=== PATIENT | female | born 1970 | race Asian ===

== ENCOUNTER 2019-05-20 09:55 | Outpatient (CLI) | payer BC, SELFPAY ==
--- NOTE | 2019-05-20 09:58 | MM_ITS ---
WS: [id number] DIAGNOSTIC LEFT DIGITAL MAMMOGRAM WITH CAD LEFT breast ultrasound, limited HISTORY: Follow-up LEFT breast nodule. COMPARISON: 10/24/2018, 03/21/2018 and 06/04/2017 Technique: CC, MLO and ML views. Spot compression LEFT CC. Breast composition: The breasts are heterogeneously dense, which may obscure small masses. Biopsy cli p 3:00 axis of the LEFT breast. No architectural distortion or increasing mass or density. No calcifi cations. LEFT breast ultrasound, limited. Ultrasound directed to the 3:00 axis of the LEFT breast. There is a hypoechoic nodule with slightly l obulated margins measuring 6 x 4 x 7 mm. No significant increase in size although the shape appears s lightly more irregular. There is no increased vascularity. This nodule has been previously biopsied a nd was benign. Due to the slight change in the margins additional follow-up is necessary. Recommend ultrasound follow-up of the LEFT breast nodule at 3:00 in 6 months. The margins are slightl y more irregular on today's examination although there is no increase in size. MM/[id number] IMPRESSION: BI-RADS: 3-Probably Benign FOLLOW UP: 6 Month Follow-up
== END 2019-05-20 09:56 | disposition home or self-care (01) ==
LOC: RADSHAW 09:55
PROVIDERS: Family Provider Internal Medicine; PCP Internal Medicine; Visit Provider Internal Medicine
DX: N63.20 Unspecified lump in the left breast, unspecified quadrant (principal)
CPT/HCPCS: 76642; 77065

== ENCOUNTER 2019-12-24 11:08 | Outpatient (CLI) | payer BC, SELFPAY ==
--- NOTE | 2019-12-24 11:20 | MM_ITS ---
WS: [id number] BILATERAL DIGITAL DIAGNOSTIC MAMMOGRAM MAMMOGRAPHY WITH CAD CLINICAL INFORMATION: 6 MO F/U LT BREAST NODULE HISTORY: Six-month follow-up COMPARISON: May 20, 2019 and and TECHNIQUE: Bilateral CC, MLO, and ML views. FINDINGS: The breasts are composed of heterogeneous fibroglandular density, which can limit the detection of sm all underlying mass lesions. Biopsy marker left breast. Stable left breast calcifications. Ultrasound is pending. Right breast is unchanged in appearance. ULTRASOUND BREAST LEFT TECHNIQUE: Ultrasound left breast focused area of concern. CLINICAL INFORMATION: 6 MO F/U LT BREAST NODULE FINDINGS: Ultrasound left breast at the 3:00 position. Again seen is the hypoechoic nodule with slightly lobula kunal margins today measuring 4.9 x 3.4 x 4.8 mm not significantly changed in size compared to previous . This has been previously biopsied and reported to be benign. MM/[id number] IMPRESSION: BI-RADS: 3-Probably Benign FOLLOW UP: 6 Month Follow-up RECOMMEND 6 MONTH LEFT DIAGNOSTIC MAMMOGRAPHY AND ULTRASOUND TO DOCUMENT TWO-YE AR STABILITY
== END 2019-12-24 11:09 | disposition home or self-care (01) ==
LOC: RADSHAW 11:16
PROVIDERS: PCP Internal Medicine; Visit Provider Internal Medicine
DX: N63.20 Unspecified lump in the left breast, unspecified quadrant (principal); N63.25 Unspecified lump in the left breast, overlapping quadrants
CPT/HCPCS: 76642; 77066

== ENCOUNTER 2020-09-08 11:02 | Outpatient (CLI) | payer BC, SELFPAY ==
--- NOTE | 2020-09-08 11:05 | MM_ITS ---
WS: [id number] DIAGNOSTIC LEFT DIGITAL MAMMOGRAM WITH CAD LEFT breast ultrasound, limited HISTORY: INCONCLUSIVE MAMMOGRAM 2 year follow-up benign biopsy. COMPARISON: 12/24/2019, 05/20/2019, 10/24/2018 Technique: CC, MLO and ML views. Spot compression LEFT CC. Breast composition: The breasts are heterogeneously dense, which may obscure small masses. Dense fibr oglandular tissue again noted in the upper outer quadrant of the LEFT breast. No discrete mass identi fied. There is a biopsy clip with no increase in adjacent soft tissue. LEFT breast ultrasound, limited. Ultrasound is directed 3:00 of the LEFT breast. There is a soft tissue nodule which is hypoechoic a long the posterior chest wall measuring 4 x 3 x 4 mm. No increased vascularity. Long-term stability. MM/[id number] IMPRESSION: BI-RADS: 2-Benign FOLLOW UP: 1 Year Follow-up Patient should return to annual screening mammography
== END 2020-09-08 11:03 | disposition home or self-care (01) ==
LOC: RADSHAW 11:04
PROVIDERS: PCP Internal Medicine; Visit Provider Internal Medicine
DX: R92.2 Inconclusive mammogram (principal)
CPT/HCPCS: 76642; 77065

== ENCOUNTER 2022-03-06 07:57 | Outpatient (CLI) | payer BC, SELFPAY ==
--- NOTE | 2022-03-06 08:04 | MM_ITS ---
WS: [id number] BILATERAL SCREENING DIGITAL TOMOSYNTHESIS MAMMOGRAM WITH CAD HISTORY: SCREENING COMPARISON: 09/08/2020, 06/16/2019 Bilateral CC and MLO views with tomosynthesis and synthetic mammography submitted. Computer aided det ection analyzed. Breast composition: The breasts are heterogeneously dense, which may obscure small masses. No suspici ous masses, microcalcifications or architectural distortion. Biopsy clip in the lateral LEFT breast. No associated mass. MM/[place] [id number] IMPRESSION: BI-RADS: 2-Benign FOLLOW UP: 1 Year Follow-up
== END 2022-03-06 07:58 | disposition home or self-care (01) ==
LOC: RAD 08:00
PROVIDERS: PCP Internal Medicine; Visit Provider Internal Medicine
DX: Z12.31 Encounter for screening mammogram for malignant neoplasm of breast (principal)
CPT/HCPCS: 77063; 77067

== ENCOUNTER 2023-05-22 08:01 | Outpatient (CLI) | payer BC, SELFPAY ==
--- NOTE | 2023-05-22 08:08 | MM_ITS ---
WS: [id number] BILATERAL 3D TOMOSYNTHESIS DIGITAL SCREENING MAMMOGRAPHY WITH CAD CLINICAL INFORMATION: SCREENING HISTORY: Screening mammogram. No current complaints. COMPARISON: 2021 TECHNIQUE: Bilateral CC and MLO views. FINDINGS: The breasts are composed of heterogeneous fibroglandular density tissue, which can limit the detectio n of small underlying mass lesions. No suspicious mass, asymmetry, calcifications, or architectural d istortion. No evidence of malignancy. Biopsy marker LEFT breast. IMPRESSION: MM/[place] [id number] BI-RADS: 2-Benign FOLLOW UP: 1 Year Follow-up Recommend return to annual screening mammography.
== END 2023-05-22 08:02 | disposition home or self-care (01) ==
LOC: RAD 08:01
PROVIDERS: PCP Internal Medicine; Visit Provider Internal Medicine
DX: Z12.31 Encounter for screening mammogram for malignant neoplasm of breast (principal)
CPT/HCPCS: 77063; 77067

== ENCOUNTER 2024-05-27 07:41 | Outpatient (CLI) | payer BC, SELFPAY ==
--- NOTE | 2024-05-27 07:48 | MM_ITS ---
WS: [id number] BILATERAL 3D TOMOSYNTHESIS DIGITAL SCREENING MAMMOGRAPHY WITH CAD CLINICAL INFORMATION: SCREENING HISTORY: Screening mammogram. No current complaints. COMPARISON: 2023 TECHNIQUE: Bilateral CC and MLO views. FINDINGS: The breasts are composed of heterogeneous fibroglandular density tissue, which can limit the detection of small underlying mass lesions. No suspicious mass, asymmetry, calcifications, or architectural distortion. No evidence of malignancy. Biopsy clip LEFT breast. MM/MM scr tomosynthesis [id number] IMPRESSION: DENSITY: The breasts are heterogeneously dense, which may obscure small masses. BI-RADS: 2 - Benign FOLLOW UP: 1 Year Follow-up Recommend return to annual screening mammography.
== END 2024-05-27 07:42 | disposition home or self-care (01) ==
LOC: RAD 07:44
PROVIDERS: PCP Internal Medicine; Visit Provider Family Medicine
DX: Z12.31 Encounter for screening mammogram for malignant neoplasm of breast (principal); R92.333 Mammographic heterogeneous density, bilateral breasts
CPT/HCPCS: 77063; 77067